=== PATIENT | female | born 1990 | race Caucasian/White ===

== ENCOUNTER 2017-06-11 21:00 | Inpatient (IN) | payer MEDICARE, MEDICAID ==
[~2017-06-11] VITALS: Ht 154.9 cm; Wt 88.9 kg
--- NOTE | ~2017-06-11 | PN ---
Unit #: [id number] #: [id number] Patient: ORLIN SRIVASTAVA [id number] [facility] [address] [place] [address] [id number] I MR#: [id number] NAME: ORLIN SRIVASTAVA. ROOM: P254 Age: 27 Sex: F Admission Date: 06/12/2017 : 1990 Attending Physician: Pal Ye M.D. Admitting Physician: Pal Ye M.D. Primary Care Physician: Primary Care Physician No [facility] PROGRESS NOTES DATE OF SERVICE: 06/13/2017 DISCUSSION Ms. Chung is a 27-year-old female, seen on 06/13/2017. The patient interviewed, chart reviewed, and obtained information from nursing staff. The patient continues to be withdrawn, isolative, flat affect, guarded, almost hitting, poor interaction, withdrawn, isolative, guarded, still endorsing depression and suicidal ideation. Complete review of systems unremarkable. MENTAL STATUS EXAMINATION General appearance, the patient dressed casually. Attention span and concentration, poor. Oriented in place and person. Mood and affect, sad, dysphoric, flat. Speech, monotone, long pauses. Thought process, circumstantial. Thought content, the patient reported having suicidal ideation, guarded, paranoid, withdrawn, isolative. Recent and remote memory, poor. Insight and judgment, poor. DIAGNOSES Major depressive disorder, recurrent, severe, with psychotic feature. ASSESSMENT/PLAN Advised to continue with current medication and therapeutic protocol. Monitor for seizures. Advised Prozac 20 mg daily and Zyprexa 5 mg at bedtime. If needed, consider further adjustment of medication. Dictated by... Sophie Oconnor/ida TD: 06/13/2017 13:43 JOB #: [id number] Unit #: [id number] #: [id number] Patient: ORLIN SRIVASTAVA [facility] PROGRESS NOTES Page 1 of 1 X Pal Ye MD PROGRESS NOTE
--- NOTE | ~2017-06-11 | PN ---
Unit #: [id number] #: [id number] Patient: ORLIN SRIVASTAVA [id number] [facility] [address] [place] [address] [id number] I MR#: [id number] NAME: ORLIN SRIVASTAVA. ROOM: P254 Age: 27 Sex: F Admission Date: 06/12/2017 : 1990 Attending Physician: Pal Ye M.D. Admitting Physician: Pal Ye M.D. Primary Care Physician: Primary Care Physician Lavinia BROTHERS PROGRESS NOTES DATE 06/18/2017 DISCUSSION Ms. Chung is a 27-year-old female, seen on 06/18/2017. The patient was scheduled to be discharged yesterday but unable to go. The patient was sad, depressed, withdrawn, isolative, guarded. Vital signs stable. The patient compliant with medication, but still very withdrawn, guarded, but denied any thoughts of harming self or others. REVIEW OF SYSTEMS Complete review of systems unremarkable. MENTAL STATUS EXAMINATION General appearance: Patient dressed casually. Attention span and concentration, fair. Oriented in time, place, and person. Mood and affect, labile. Speech, monotone. Thought process, concrete. The patient denied any thoughts of harming self or others but withdrawn, isolative, flat affect. Recent and remote memory, poor. Insight and judgment, poor. DIAGNOSIS Major depressive disorder, recurrent, severe. ASSESSMENT/PLAN Advised to continue with the current medication with a plan to discharge today, and followup on the outpatient basis. Dictated by... Sophie Oconnor/laurita TD: 06/19/2017 05:29 JOB #: [id number] Unit #: [id number] #: [id number] Patient: ORLIN SRIVASTAVA [facility] PROGRESS NOTES Page 1 of 1 X Pal Ye MD X PROGRESS NOTE
--- NOTE | ~2017-06-11 | DS ---
Unit #: [id number] #: [id number] Patient: ORLIN SRIVASTAVA [id number] [place] [address] [id number] I MR#: [id number] NAME: ORLIN SRIVASTAVA. ROOM: P254 Age: 27 Sex: F Admission Date: 06/12/2017 : 1990 Discharge Date: Attending Physician: Pal Ye M.D. Primary Care Physician: Primary Care Physician No DISCHARGE SUMMARY REASON FOR ADMISSION Depression. DIAGNOSTIC STUDIES LABORATORY RESULTS: None. HOSPITAL COURSE The patient was admitted to the inpatient unit on 06/12/2017 and discharged on 06/17/2017. The patient was treated with group therapy, individual therapy, and medication management. The patient was responsive to treatment and showed improvement. Subsequently, the patient was discharged with a plan to follow up in outpatient program. DISCHARGE MEDICATIONS Prozac 20 mg daily for depression and Zyprexa 5 mg at bedtime for mood stabilization. DISCHARGE DIAGNOSES Psychiatric: Major depressive disorder, recurrent, severe, F33.2; opioid use disorder, severe, F11.20; cannabis abuse disorder, moderate, F12.20; and sedative hypnotic use disorder, severe, F13.20. Secondary diagnosis: Deferred. Medical diagnosis: History of idiopathic seizure. Stressors: Psychosocial stressor. DISCHARGE INSTRUCTIONS The patient to follow up in outpatient clinic as per social work administrator. CONDITION ON DISCHARGE The patient was pleasant and cooperative. Denied any auditory or visual hallucination, but somewhat guarded. Recent and remote memory, poor. Insight and judgment, poor. DIET AND ACTIVITY As tolerated. Dictated by... Pal Ye M.D. Unit #: [id number] #: [id number] Patient: ORLIN SRIVASTAVA SZC/modl TD: 06/17/2017 17:53 JOB #: [id number] DISCHARGE SUMMARY Page 1 of 1 X Pal Ye MD X DISCHARGE SUMMARY
--- NOTE | ~2017-06-11 | PN ---
Unit #: [id number] #: [id number] Patient: ORLIN SRIVASTAVA [id number] [facility] [address] [place] [address] [id number] I MR#: [id number] NAME: ORLIN SRIVASTAVA. ROOM: P254 Age: 27 Sex: F Admission Date: 06/12/2017 : 1990 Attending Physician: Pal Ye M.D. Admitting Physician: Pal Ye M.D. Primary Care Physician: Primary Care Physician Lavinia SIEGELCE PROGRESS NOTES DATE OF SERVICE: 06/14/2017 DISCUSSION Ms. Chung is a 27-year-old female, seen on 06/14/2017. The patient interviewed, chart reviewed, and obtained information from nursing staff. The patient continues to be very guarded and paranoid. The patient is isolative and guarded. The patient continues to be guarded and paranoid. REVIEW OF SYSTEMS Complete review of systems unremarkable. MENTAL STATUS EXAMINATION General appearance, the patient dressed casually. Attention span and concentration, poor. Oriented in place and person. Mood and affect; sad, dysphoric, flat affect. Speech, monotone. Thought process, concrete. The patient having passive SI, withdrawn, isolative, guarded, and paranoid. Recent and remote memory, poor. Insight and judgment, poor. DIAGNOSIS Major depressive disorder, recurrent, severe, with psychotic feature, F33.3. ASSESSMENT/PLAN Advised to continue with current medication and therapeutic protocol. If needed, consider further adjustment of medication. Dictated by... Sophie Oconnor/ida TD: 06/15/2017 22:48 JOB #: [id number] Unit #: [id number] #: [id number] Patient: ORLIN SRIVASTAVA [facility] PROGRESS NOTES Page 1 of 1 X Pal Ye MD X PROGRESS NOTE
--- NOTE | ~2017-06-11 | HP ---
Unit #: [id number] #: [id number] Patient: ORLIN SRIVASTAVA [id number] [place] [address] [id number] I MR#: [id number] NAME: ORLIN SRIVASTAVA. ROOM: P254 Age: 27 Sex: F Admission Date: 06/12/2017 : 1990 Attending Physician: Pal Ye M.D. Admitting Physician: Pal Ye M.D. Primary Care Physician: Primary Care Physician No HISTORY AND PHYSICAL HISTORY OF PRESENT ILLNESS Orlin is a 27-year-old admitted to [address] [place] [address] because of her polysubstance abuse which includes IV heroin and methamphetamine. PAST MEDICAL HISTORY 1. Long history of illicit substance abuse to include IV heroin and meth. 2. Asthma. 3. Seizure disorder. PAST SURGICAL HISTORY Cholecystectomy. ALLERGIES Tramadol. SOCIAL HISTORY He smokes 1 pack per day. Denies alcohol. Admits to a long history of poly-illicit substance abuse to include IV drugs. FAMILY HISTORY Medically noncontributory. REVIEW OF SYSTEMS CONSTITUTIONAL: No fever or chills. HEENT: Denies any sore throat, ear pain or runny nose. CARDIOVASCULAR: Denies chest pain, irregular heart rhythm or palpitations. CHEST: Denies shortness of breath or cough. No hemoptysis. GASTROINTESTINAL: Denies nausea, vomiting, diarrhea or chronic constipation. ENDOCRINE: Denies history of increased thirst or urination. No recent significant weight loss or gain. GENITOURINARY: Denies dysuria, frequency, or hematuria. SKIN: Denies any rashes. HEMATOLOGIC: Denies history of increased bleeding or bruising. MUSCULOSKELETAL: Denies any hot, swollen joints. No generalized muscle pain. NEUROLOGIC: Denies problems with vision or speech. No frequent, severe headaches. No numbness, tingling or weakness in any extremities. Denies loss of bladder or bowel control. CURRENT MEDICATIONS 1. Zarontin 500 mg b.i.d. Unit #: [id number] #: [id number] Patient: ORLIN SRIVASTAVA 2. Zonegran 125 mg b.i.d. 3. Nicotine patch 21 mg daily. 4. Milk of Magnesia p.r.n. 5. Maalox p.r.n. 6. Tylenol p.r.n. PHYSICAL EXAMINATION GENERAL: Alert, obese, in no apparent distress. VITAL SIGNS: Blood pressure 110/70, heart rate 84, respirations 16, temperature 98.6. WEIGHT: 196. HEIGHT: 5 feet 1 inch. SKIN: Warm and dry without rash or lesion. HEENT: Normocephalic. TMs not viewed. Oral and nasal passages clear. Conjunctivae clear. PERRLA. EOMs intact. NECK: Supple without lymphadenopathy or thyromegaly. HEART: Regular rate and rhythm without murmur. LUNGS: Clear. ABDOMEN: Soft, nontender. : Not done. EXTREMITIES: No evidence of cyanosis, clubbing or edema. Moves all without focal deficit. NEUROLOGICAL: Grossly within normal limits. Cranial Nerves: II: Visual wright are intact. III, IV AND : Extraocular movements are intact. Pupils are equal, round and reactive to light. V: Facial sensation is grossly normal. VII: Facial movements and expression are normal. VIII: Auditory acuity grossly intact. IX, X: Uvula is midline. Phonation is normal. XI: Patient shrugs shoulders and turns head normally. XII: Tongue protrudes in the midline. Sensory and Motor Function: Sensory and motor sensation is grossly normal. Motor: moves all extremities well. Coordination: Gait is normal. Deep Tendon Reflexes: Intact. IMPRESSION Psychiatric admission. RECOMMENDATIONS PSYCHIATRIC: Per psychiatrist. MEDICAL: See no contraindication to participate in facility's activities. MEDICAL PROGNOSIS Good. MEDICAL CONDITION Stable. Dictated by... Portia Mcdowell P.A.-C. for Sophie Pat/lilian TD: 06/13/2017 17:06 Unit #: [id number] #: [id number] Patient: ORLIN SRIVASTAVA JOB #: [id number] HISTORY AND PHYSICAL Page 1 of 1 X Portia Mcdowell HISTORY AND PHYSICAL
--- NOTE | ~2017-06-11 | PN ---
Unit #: [id number] #: [id number] Patient: ORLIN SRIVASTAVA [id number] [facility] [address] [place] [address] [id number] I MR#: [id number] NAME: ORLIN SRIVASTAVA. ROOM: P254 Age: 27 Sex: F Admission Date: 06/12/2017 : 1990 Attending Physician: Pal Ye M.D. Admitting Physician: Pal Ye M.D. Primary Care Physician: Primary Care Physician No [facility] PROGRESS NOTES DATE OF SERVICE: 06/15/2017 DISCUSSION Ms. Chung is a 27-year-old female, seen on 06/15/2017. The patient interviewed, chart reviewed, and obtained information from nursing staff. The patient continues to be isolative, guarded, and flat affect. The patient was placed on 72-hour hold as the patient wanted to leave. The patient is making progress, but still having withdrawn, paranoia, sad, depressed, guarded. Also, we requested a family session with her boyfriend as the patient was brought to the hospital by the boyfriend. The patient's behavior described as disorganized thought process, guarded, and paranoid. REVIEW OF SYSTEMS Complete review of systems unremarkable. MENTAL STATUS EXAMINATION General appearance, the patient dressed casually. Vital signs; temperature 97.9, heart rate 109, and blood pressure 148/99. Attention span and concentration, fair. Oriented in place and person. Mood and affect, sad, depressed, withdrawn, and isolative. Speech, monotone. Thought process, concrete. The patient having passive SI, withdrawn, and paranoia. Recent and remote memory, poor. Insight and judgment, poor. DIAGNOSIS Major depressive disorder, recurrent, severe, with psychotic feature. ASSESSMENT/PLAN Advised to continue with current medication and therapeutic protocol. If needed, consider further adjustment of medication. Dictated by... Sophie Oconnor/ida TD: 06/15/2017 13:57 JOB #: [id number] Unit #: [id number] #: [id number] Patient: ORLIN SRIVASTAVA [facility] PROGRESS NOTES Page 1 of 1 X Pal Ye MD PROGRESS NOTE
--- NOTE | ~2017-06-11 | PN ---
Unit #: [id number] #: [id number] Patient: ORLIN SRIVASTAVA [id number] [facility] [address] [place] [address] [id number] I MR#: [id number] NAME: ORLIN SRIVASTAVA. ROOM: P254 Age: 27 Sex: F Admission Date: 06/12/2017 : 1990 Attending Physician: Pal Ye M.D. Admitting Physician: Pal Ye M.D. Primary Care Physician: Primary Care Physician Lavinia SIEGELCE PROGRESS NOTES DATE 06/16/2017 DISCUSSION Ms. Chung is a 27-year-old female. Patient interviewed. Chart reviewed. Obtained information from nursing staff. Patient compliant, cooperative. Mood sad, dysphoric, flat affect, withdrawn, isolative, guarded but denied any thoughts of harming self others. Complete review of system unremarkable. MENTAL STATUS EXAMINATION General appearance, patient dressed casually. Attention span, concentration fair. Oriented in place and person. Mood and affect labile. Speech monotone. Thought process concrete. Patient denied any thoughts of harming self or others but withdrawn, isolative, guarded. Recent and remote memory poor. Insight and judgement poor. DIAGNOSIS Major depressive disorder, recurrent, severe. ASSESSMENT/PLAN Advised to continue with current medication and therapeutic protocol. If needed, consider further adjustment of medication. Dictated by... Sophie Oconnor/lilian TD: 06/16/2017 23:22 JOB #: [id number] Unit #: [id number] #: [id number] Patient: ORLIN SRIVASTAVA [facility] PROGRESS NOTES Page 1 of 1 X Pal Ye MD PROGRESS NOTE
--- NOTE | ~2017-06-11 | PA ---
Unit #: [id number] #: [id number] Patient: ORLIN SRIVASTAVA [id number] [place] [address] [id number] I MR#: [id number] NAME: ORLIN SRIVASTAVA. ROOM: P254 Age: 27 Sex: F Admission Date: 06/12/2017 : 1990 Date of Assessment: Attending Physician: Pal Ye M.D. Admitting Physician: Pal Ye M.D. PSYCHIATRIC ASSESSMENT DATE OF SERVICE 06/12/2017. INFORMANTS The patient reliability, poor informant and chart reliability, good. CHIEF COMPLAINT None from the patient, but bizarre behavior. HISTORY OF PRESENT ILLNESS Ms. Chung is a 27-year-old female, was brought by boyfriend and [id number], who reported that the patient is depressed and suicidal and had cut herself today. The patient was withdrawn, isolative, flat affect, speech not spontaneous. According to family, the patient might have taken pill or cut her wrist. The patient was a poor historian, withdrawn, isolative, flat affect, guarded, and poor eye contact. The patient lives with boyfriend and [id number]. The patient reported feeling sad, depressed, and low energy. The patient endorses regular use of cannabis, occasional use of alcohol and benzos, and regular use of hydrocodone. The patient denied any history of any withdrawal symptoms. The patient needed inpatient admission at this time for psychiatric stabilization. PAST PSYCHIATRIC HISTORY Remarkable for history of previous treatment as an adolescent for [id number]-bfowayy behavior. FAMILY HISTORY AND SOCIAL HISTORY The patient has a good support system. No history of abuse. No history of any legal problem. MEDICAL HISTORY Remarkable for history of idiopathic seizure disorder. Musculoskeletal; muscle strength and tone, no atrophy or abnormal movement. Gait normal. MEDICATION HISTORY The patient is on Zarontin 500 mg b.i.d. for seizure. ALLERGIES No known drug allergies. SUBSTANCE ABUSE HISTORY The patient reported use of tobacco, age of onset 20; alcohol, age of onset 20; marijuana, age of onset 20; and opioid, age of onset 20. The Unit #: [id number] #: [id number] Patient: ORLIN SRIVASTAVA patient denied any history of blackout, HIV, hepatitis, withdrawal symptom, or IV drug use. REVIEW OF SYSTEMS HEENT: Eyes, clear. Ears, nose, mouth, and throat; clear. CARDIOVASCULAR: Unremarkable. RESPIRATORY: Unremarkable. GI: Unremarkable. : Unremarkable. SKIN: Unremarkable. LYMPH NODE: Unremarkable. NEUROLOGIC: Unremarkable. ENDOCRINE: Unremarkable. HEMATOLOGIC: Unremarkable. ALLERGIC/IMMUNOLOGIC: Unremarkable. MUSCULOSKELETAL: Muscle strength and tone, no atrophy or abnormal movement. Gait normal. MENTAL STATUS EXAMINATION CONSTITUTIONAL: Measurement of vital signs; temperature 97.6, heart rate 85, respiratory rate 18, and blood pressure 111/69. Height 5 feet 1 inch and weight 196 pounds. GENERAL APPEARANCE: The patient dressed casually. The patient did not show any facial deformity. MUSCULOSKELETAL: Please see above. PSYCHIATRIC EXAMINATION Description of speech, slow and nonspontaneous. Description of thought process, circumstantial. Description of association, intact. Description of abnormal psychotic thinking; guarded, paranoid, sad, depressed, withdrawn, and suicidal ideation. Description of the patient's judgment: Concerning everyday activity, poor. Social situation, poor. Concerning psychiatric condition, poor. Complete mental status examination; oriented in time, place, and person. Recent and remote memory, fair. Attention span and concentration, fair. Language, able to name object and repeat phrases. Fund of knowledge, aware of current event and passive vocabulary intact. Mood and affect, sad and dysphoric. Insight and judgment, fair to poor. ASSETS AND LIABILITIES Assets, the patient is articulate and able to take care of her ADL. Liability, history of depression and substance abuse. ADMITTING DIAGNOSES Psychiatric: Major depressive disorder, recurrent, severe, F33.2; opioid use disorder, severe, F11.20; cannabis abuse, moderate, F12.20; and sedative hypnotic use disorder, severe, F13.20. Secondary diagnosis: Deferred. Medical diagnosis: History of idiopathic seizure. Stressors: Psychosocial stressors. PSYCHIATRIC PLAN AND TREATMENT GOAL AND DISCHARGE PLAN 1. Advised to admit the patient on the inpatient unit. Provide safe, supportive, and structured environment. Unit #: [id number] #: [id number] Patient: ORLIN SRIVASTAVA 2. Ordered labs; CBC, CMP, UA, UDS, and test. 3. Precaution for aggression, self-harm, detox protocol, and detox monitoring. Plan to consider medication. If needed, continue with Zarontin for seizure. 4. Treatment goal to attain euthymic mood, gain insight into her problem, and learn coping skills. Plan to consider SSRI. DISCHARGE PLAN Plan to stabilize the patient and consider followup in outpatient program. ESTIMATED LENGTH OF STAY 7 days. Dictated by... Sophie Oconnor/ida TD: 06/12/2017 15:51 JOB #: [id number] PSYCHIATRIC ASSESSMENT Page 1 of 1 X Pal Ye MD X PSYCHIATRIC ASSESSMENT
== END 2017-06-18 10:15 | disposition home or self-care (01) | DRG 885 ==
LOC: P1E 06-12 03:17 → P2L 06-12 03:17
DX: F33.2 Major depressive disorder, recurrent severe without psychotic features (principal); F11.20 Opioid dependence, uncomplicated; F13.20 Sedative, hypnotic or anxiolytic dependence, uncomplicated; F12.20 Cannabis dependence, uncomplicated